=== PATIENT | female | born 1955 | race African-American/Black ===

== ENCOUNTER 2019-02-24 19:49 | Emergency (ER) | payer BC ==
[~2019-02-24] VITALS: Ht 170.2 cm; Wt 63.6 kg
[~2019-02-24 19:49] MED LIST: CERON-DM PO; CIPRO500 MG OR; E.E.S. 400400 MG OR; LORTAB5 PO; NO; ROBITUSSIN AC10 ML OR; TORADOL OR; UNKNOWN BP MEDS; ZOLOFT50 MG PO
[2019-02-24] MEDS ORDERED: WALKER WHEELS/FIXED (21:09)
[2019-02-24] MEDS ORDERED: NAPROXEN375 MG PO (21:09)
[2019-02-24] MEDS ORDERED: FLEXERIL5 MG PO (21:09)
[2019-02-24 21:10] VITALS: BP 115/63
== END 2019-02-24 21:28 | disposition home or self-care (01) | DRG 538 ==
LOC: ED 19:49
DX: S76.912A Strain of unspecified muscles, fascia and tendons at thigh level, left thigh, initial encounter (principal); Y93.F2 Activity, caregiving, lifting; Y92.009 Unspecified place in unspecified non-institutional (private) residence as the place of occurrence of the external cause